=== PATIENT | male | born 1935 | race Two or more races ===

== ENCOUNTER 2016-12-13 16:44 | Observation (INO) | payer OTHER ==
[~2016-12-13] VITALS: Ht 167.6 cm; Wt 72.6 kg
[~2016-12-13 16:44] MED LIST: ASPI81TA27 PO; CARV3.1240 PO; FURO40TA4 PO; LISI-646 PO; TAMS0.4C36 PO
[2016-12-13] MEDS ORDERED: SODIUM CHLORIDE 0.9% 1,000 ML IVB ONE (17:41)
[2016-12-13 18:07] LABS: Basophils # (auto) 0 uL; Basophils % (auto) 0.5 % (0.0-2.0); Eosinophils # (auto) 0.1 uL; Eosinophils % (auto) 1.5 % (0.0-7.0); Hematocrit 40.2 % (41.0-53.0); Hemoglobin 12.9 g/dL (13.5-17.5); Lymphocytes # (auto) 1.1 uL; Lymphocytes % (auto) 13.4 % (10.0-50.0); Mean Corpuscular Hemoglobin 28.3 pg (28.0-32.0); Mean Corpuscular Volume 88.7 fL (80.0-100.0); Mean Platelet Volume 7.9 fL (7.4-10.4); Monocytes # (auto) 0.4 uL; Monocytes % (auto) 4.5 % (0.0-12.0); Neutrophils # (auto) 6.7 uL; Neutrophils % (auto) 80.1 % (37.0-80.0); Platelet Count (auto) 472 10^3/uL (140-450); Red Cell Distribution Width 15.4 % (11.6-16.0); White Blood Cell 8.4 10^3/uL (4.4-10.8)
[2016-12-13 18:16] LABS: INR 1.11 (0.9-1.15); Partial Thromboplastin Time 28.4 sec (22.64-33.71)
[2016-12-13 18:18] LABS: BUN/Creatinine Ratio 13.6; Calcium 8.9 mg/dL (8.5-10.1); Potassium 4.6 mmol/L (3.5-5.1)
[2016-12-13 18:23] LABS: Bilirubin, Total 0.9 mg/dL (0.2-1.0); Total Protein 7.8 g/dL (6.4-8.2)
[2016-12-13 18:39] VITALS: BP 176/71
== END 2016-12-13 18:59 | disposition short-term general hospital (02) | DRG 66 ==
LOC: EDBD 16:44 → ER 16:47 → OVERFLOW 17:42 → ER 18:59
PROVIDERS: ADMIT Family Medicine; ATTEND Family Medicine
DX: I62.00 Nontraumatic subdural hemorrhage, unspecified (principal); S00.03XA Contusion of scalp, initial encounter; L98.9 Disorder of the skin and subcutaneous tissue, unspecified; W18.30XA Fall on same level, unspecified, initial encounter; Y93.89 Activity, other specified; Y92.89 Other specified places as the place of occurrence of the external cause; Y99.8 Other external cause status
CPT/HCPCS: 36415; 70450; 80053; 82962; 83735; 84484; 85025; 85610; 85730; 93005; 96360; 99285; G0378; J7030

== ENCOUNTER 2017-08-15 18:55 | Inpatient (IN) | payer OTHER ==
[~2017-08-15] VITALS: Ht 172.7 cm; Wt 74.0 kg
[~2017-08-15 18:55] MED LIST changes: +ATOR10TA PO; -CARV3.1240 PO; -LISI-646 PO; -TAMS0.4C36 PO
[2017-08-15 20:33] LABS: Basophils # (auto) 0.1 uL; Basophils % (auto) 0.7 % (0.0-2.0); Eosinophils # (auto) 0 uL; Hemoglobin 12.8 g/dL (13.5-17.5); Lymphocytes # (auto) 0.7 uL; Lymphocytes % (auto) 9.3 % (10.0-50.0); Mean Corpuscular Hemoglobin 29.8 pg (28.0-32.0); Mean Corpuscular Hgb Conc. 32.8 g/dL (32.0-36.0); Mean Corpuscular Volume 90.8 fL (80.0-100.0); Monocytes # (auto) 0.8 uL; Monocytes % (auto) 10.8 % (0.0-12.0); Neutrophils # (auto) 5.9 uL; Neutrophils % (auto) 79.2 % (37.0-80.0); Nucleated Red Blood Cells % 0.4 %; Platelet Count (auto) 397 10^3/uL (140-450); Red Blood Cells 4.29 10^6/uL (4.5-5.90); Red Cell Distribution Width 16.8 % (11.8-14.3); White Blood Cell 7.4 10^3/uL (4.4-10.8)
[2017-08-15] MEDS ORDERED: ACETAMINOPHEN 325 MG TAB PO ONE ×2 (20:45→20:50)
[2017-08-15] MEDS ORDERED: cefTRIAXone 1GM/10ml IVPUSH 10 ML IV ONE (21:15)
[2017-08-15 21:40] LABS: Urine Amorphous Crystal FEW /hpf (None Seen); Urine Bacteria MANY /hpf (None Seen); Urine Blood 1+ /uL (Negative); Urine Hyaline Cast MANY /lpf (0 - 2); Urine Mucus FEW (None Seen); Urine Specific Gravity 1.018 (1.001-1.035); Urine WBC 88 /hpf (0 - 3); Urine WBC Clumps PRESENT /hpf (None Seen)
[2017-08-15 21:42] LABS: Alkaline Phosphatase 316 U/L (45-117); Anion Gap 11 (5-15); BUN/Creatinine Ratio 18.1; Blood Urea Nitrogen 41 mg/dL (7-18); Carbon Dioxide 21 mmol/L (21-32); Chloride 99 mmol/L (98-107); GFR African American 36 mL/min; GFR Non-African American 30 mL/min; Glucose 82 mg/dL (74-106); Potassium 4.6 mmol/L (3.5-5.1); Sodium 131 mmol/L (136-145)
[2017-08-15 21:43] LABS: Alanine Aminotransferase 392 U/L (16-61); Aspartate Aminotransferase 1078 U/L (15-37); Bilirubin, Total 4.6 mg/dL (0.2-1.0); Calcium 8.8 mg/dL (8.5-10.1); Total Protein 7.8 g/dL (6.4-8.2)
[2017-08-15 21:44] LABS: Albumin 2.8 g/dL (3.4-5.0); Blood Alcohol < 3.0 mg/dL (0-5); Magnesium 2.3 mg/dL (1.6-2.6)
[2017-08-15 22:48] LABS: Amphetamine Screen, Urine NEGATIVE (NEGATIVE); Barbiturate Scree,Urine NEGATIVE (NEGATIVE); Benzodiazephine Screen, Urine NEGATIVE (NEGATIVE); Cannabinoid Screen, Urine NEGATIVE (NEGATIVE); Cocaine Screen, Urine NEGATIVE (NEGATIVE); Opiate Scree,Urine NEGATIVE (NEGATIVE); Phencyclidine Screen, Urine NEGATIVE (NEGATIVE)
[2017-08-16] MEDS ORDERED: FUROSEMIDE 40 MG/4 ML VIAL IV ONE (02:45)
[2017-08-16] MEDS ORDERED: TEMAZEPAM 15 MG CAP PO PRN (02:45)
[2017-08-16] MEDS ORDERED: MORPHINE SULF INJ 2 MG/ML SYRINGE 1ML IV PRN ×2 (02:45)
[2017-08-16] MEDS ORDERED: cefTRIAXone 1GM/10ml IVPUSH 10 ML IV ONE (02:45)
[2017-08-16] MEDS ORDERED: HYDROcodone-ACET 5/325MG TAB PO PRN (02:45)
[2017-08-16] MEDS ORDERED: ONDANSETRON HCL 4 MG/2 ML VIAL IV PRN (02:45)
[2017-08-16] MEDS ORDERED: NITROGLYCERIN 0.4 MG SL TAB SL PRN (02:45)
[2017-08-16] MEDS ORDERED: ACETAMINOPHEN 325 MG TAB PO PRN (02:45)
[2017-08-16 05:17] LABS: INR 1.55 (0.9-1.15); Partial Thromboplastin Time 31.1 sec (22.64-33.71)
[2017-08-16] MEDS ORDERED: FUROSEMIDE 20 MG TAB PO SCH (06:00)
[2017-08-16 09:23] LABS: Hepatitis B Surface Antibody Negative
[2017-08-16 09:34] LABS: Hepatitis B Surface Antigen Negative (Negative)
[2017-08-16] MEDS ORDERED: LOSARTAN POTASSIUM 25 MG TAB PO SCH (10:00)
[2017-08-16 10:01] LABS: Hepatitis C Antibody Negative (Negative)
[2017-08-16 10:02] LABS: Hepatitis A Total Antibody Positive; Hepatitis B Core Total AB Negative
[2017-08-16] MEDS: HEPARIN SODIUM (PORCINE) 5000 UNITS/ML 1ML VIAL SC SCH ×2 (10:55→22:38)
[2017-08-16] MEDS: CARVEDILOL 3.125 MG TAB PO SCH ×2 (10:59→22:00)
[2017-08-16] MEDS: ASPirin 81 mg TAB PO SCH (10:59)
[2017-08-16] MEDS: FUROSEMIDE 40 MG/4 ML VIAL IV SCH ×2 (14:06→18:00)
[2017-08-16 19:45] VITALS: BP 106/51
[2017-08-16 22:00] VITALS: BP 106/51
[2017-08-16] MEDS: LEVETIRACETAM 500 MG TAB PO SCH (22:39)
[2017-08-16] MEDS: cefTRIAXone 1GM/10ml IVPUSH 10 ML IV SCH (22:47)
[2017-08-17 05:00] VITALS: BP 131/57
[2017-08-17] MEDS: FUROSEMIDE 40 MG/4 ML VIAL IV SCH ×2 (06:00→17:37)
[2017-08-17 07:13] LABS: Basophils # (auto) 0 uL; Basophils % (auto) 0.6 % (0.0-2.0); Eosinophils # (auto) 0 uL; Eosinophils % (auto) 0.1 % (0.0-7.0); Hematocrit 36.2 % (41.0-53.0); Lymphocytes # (auto) 0.9 uL; Lymphocytes % (auto) 14.7 % (10.0-50.0); Mean Corpuscular Hemoglobin 29.8 pg (28.0-32.0); Mean Corpuscular Hgb Conc. 33.1 g/dL (32.0-36.0); Mean Corpuscular Volume 89.8 fL (80.0-100.0); Monocytes # (auto) 0.5 uL; Monocytes % (auto) 8.1 % (0.0-12.0); Neutrophils # (auto) 4.8 uL; Neutrophils % (auto) 76.5 % (37.0-80.0); Nucleated Red Blood Cells % 0.3 %; Platelet Count (auto) 304 10^3/uL (140-450); Red Blood Cells 4.03 10^6/uL (4.5-5.90); Red Cell Distribution Width 16.7 % (11.8-14.3); White Blood Cell 6.3 10^3/uL (4.4-10.8)
[2017-08-17 07:27] LABS: INR 1.52 (0.9-1.15); Partial Thromboplastin Time 37.7 sec (22.64-33.71); Prothrombin Time 16.6 sec (9.37-12.3)
[2017-08-17 07:40] LABS: Albumin 2.3 g/dL (3.4-5.0); Bilirubin, Total 2.2 mg/dL (0.2-1.0); Calcium 7.8 mg/dL (8.5-10.1); Magnesium 2.4 mg/dL (1.6-2.6); Potassium 4.5 mmol/L (3.5-5.1); Total Protein 6.7 g/dL (6.4-8.2)
[2017-08-17 08:54] VITALS: BP 121/50
[2017-08-17] MEDS: CARVEDILOL 3.125 MG TAB PO SCH ×2 (09:58→22:00)
[2017-08-17] MEDS: ASPirin 81 mg TAB PO SCH (09:58)
[2017-08-17] MEDS: LEVETIRACETAM 500 MG TAB PO SCH ×3 (09:59→22:40)
[2017-08-17] MEDS: HEPARIN SODIUM (PORCINE) 5000 UNITS/ML 1ML VIAL SC SCH ×2 (10:03→22:51)
[2017-08-17 12:12] VITALS: BP 91/44
[2017-08-17 15:02] LABS: Protein, Urine 23.6 mg/dL (0.0-11.9)
[2017-08-17 16:30] VITALS: BP 107/59
[2017-08-17 22:03] VITALS: BP 108/62
[2017-08-17] MEDS: cefTRIAXone 1GM/10ml IVPUSH 10 ML IV SCH (22:41)
[2017-08-18 06:03] VITALS: BP 108/45
[2017-08-18] MEDS: FUROSEMIDE 40 MG/4 ML VIAL IV SCH (06:10)
[2017-08-18 07:26] LABS: Basophils # (auto) 0 uL; Basophils % (auto) 0.8 % (0.0-2.0); Eosinophils # (auto) 0 uL; Eosinophils % (auto) 0.4 % (0.0-7.0); Hematocrit 34.8 % (41.0-53.0); Hemoglobin 11.6 g/dL (13.5-17.5); Lymphocytes # (auto) 0.9 uL; Lymphocytes % (auto) 17.7 % (10.0-50.0); Mean Corpuscular Hemoglobin 29.9 pg (28.0-32.0); Mean Corpuscular Hgb Conc. 33.4 g/dL (32.0-36.0); Mean Corpuscular Volume 89.6 fL (80.0-100.0); Monocytes # (auto) 0.4 uL; Monocytes % (auto) 8.6 % (0.0-12.0); Neutrophils # (auto) 3.6 uL; Neutrophils % (auto) 72.5 % (37.0-80.0); Nucleated Red Blood Cells % 0.6 %; Platelet Count (auto) 261 10^3/uL (140-450); Red Blood Cells 3.88 10^6/uL (4.5-5.90); Red Cell Distribution Width 16.9 % (11.8-14.3); White Blood Cell 4.9 10^3/uL (4.4-10.8)
[2017-08-18 07:43] VITALS: BP 119/49
[2017-08-18 07:44] LABS: Albumin 2.1 g/dL (3.4-5.0); BUN/Creatinine Ratio 30.5; Bilirubin, Total 1.5 mg/dL (0.2-1.0); Calcium 7.4 mg/dL (8.5-10.1); Magnesium 2.5 mg/dL (1.6-2.6); Potassium 3.8 mmol/L (3.5-5.1); Total Protein 6.2 g/dL (6.4-8.2)
[2017-08-18] MEDS: LEVETIRACETAM 500 MG TAB PO SCH (09:23)
[2017-08-18] MEDS: ASPirin 81 mg TAB PO SCH (09:23)
[2017-08-18] MEDS: CARVEDILOL 3.125 MG TAB PO SCH (09:26)
[2017-08-18] MEDS: HEPARIN SODIUM (PORCINE) 5000 UNITS/ML 1ML VIAL SC SCH (09:30)
[2017-08-18] MEDS ORDERED: LEVOFLOXACIN 500MG 100 ML IV ONE (10:00)
[2017-08-18 12:17] VITALS: BP 96/42
[2017-08-18 12:47] VITALS: BP 121/59
[2017-08-19] MEDS ORDERED: LEVOFLOXACIN 250MG 50 ML IV SCH (10:00)
== END 2017-08-18 13:40 | disposition short-term general hospital (02) | DRG 280 ==
LOC: ER 18:55 → EDBD 18:55 → TELE 18:56 → EDUNIT# 18:56 → TELE-CENTR 08-16 19:13
PROVIDERS: ADMIT Nurse Practitioner; ATTEND Family Medicine
DX: I21.4 Non-ST elevation (NSTEMI) myocardial infarction (principal); I50.43 Acute on chronic combined systolic (congestive) and diastolic (congestive) heart failure; G93.6 Cerebral edema; N17.9 Acute kidney failure, unspecified; K80.21 Calculus of gallbladder without cholecystitis with obstruction; I42.9 Cardiomyopathy, unspecified; R56.9 Unspecified convulsions; N39.0 Urinary tract infection, site not specified; I13.0 Hypertensive heart and chronic kidney disease with heart failure and stage 1 through stage 4 chronic kidney disease, or unspecified chronic kidney disease; N18.3 Chronic kidney disease, stage 3 (moderate); K80.20 Calculus of gallbladder without cholecystitis without obstruction; D32.0 Benign neoplasm of cerebral meninges; E78.5 Hyperlipidemia, unspecified; I25.10 Atherosclerotic heart disease of native coronary artery without angina pectoris; E78.00 Pure hypercholesterolemia, unspecified; I70.0 Atherosclerosis of aorta; K76.0 Fatty (change of) liver, not elsewhere classified; Z79.899 Other long term (current) drug therapy; Z82.49 Family history of ischemic heart disease and other diseases of the circulatory system; Z95.810 Presence of automatic (implantable) cardiac defibrillator
CPT/HCPCS: 36415; 70450; 71045; 76705; 76775; 80053; 80061; 80307; 80320; 81001; 82140; 82150; 82550; 82570; 83605; 83690; 83735; 83880; 84156; 84484; 85025; 85610; 85730; 86704; 86706; 86708; 86803; 87040; 87340; 93005; 93306; 95819; 96372; 96374; 96375; 96376; 97163; J1956